=== PATIENT | female | born 1940 | race Caucasian/White ===

== ENCOUNTER 2017-05-26 07:17 | Day surgery (SDC) | payer OTHER, MEDICARE ==
[~2017-05-26 07:17] MED LIST: ABILIFY2 MG PO; ADVAIR HFA120 INHALA IH; ANTIFUNGAL15 G1 TP; APRESOLINE50 MG PO; ASPERDRINK81 MG PO; ASPIR-TRIN325 M1 PO; ASPIRIN81 M2 PO; ATHENOL325 MG PO; AVAPRO300 MG PO; Aspirin E.C. PO; BAZA ANTIFUNGAL57 GM TP; CATAPRES0.2 MG PO; CATAPRES0.3 MG PO; CEFUROXIME500 MG PO; CLINDAMYCIN HC300 MG PO; CLONIDINE HCL0.2 MG PO; COLACE100 MG PO; Catapres PO; DEXAMETHASONE4 MG PO; DILAUDID4 MG PO; DUONEB 2.5-0.5 M3 ML IH; ECOTRIN325 MG PO; EFFEXOR XR150 MG PO; EFFEXOR XR75 MG PO; EFFIENT10 MG PO; Effient PO; FENTANYL1 EAC4 TD; FUROSEMIDE40 MG PO; Flagyl PO; GABAPENTIN100 MG PO; GLYCOLAX225 GM PO; HUMALOG100 UNIT/1 SC; HUMALOG100 UNIT/2 SC; HYDROCORTISONE30 G2 TP; IPRATR-ALBUTEROL3 ML IH; KEFLEX500 MG PO; LANTUS 10100 UNITS/ SC; LANTUS 3 M100 UNITS1 SC; LASIX20 MG PO; LEVAQUIN500 MG PO; LEVEMIR FL100 UNIT/1 SC; LEVEMIR FL100 UNIT/1 SQ; LEVOTHROID,S0.025 M1 PO; LEVOTHROID50 MCG PO; LEVOTHYROXINE25 MCG PO; LEXAPRO20 MG PO; LISINOPRIL40 MG PO; LISINOPRIL5 MG PO; LOPRESSOR100 M1 PO; LOPRESSOR50 MG PO; LOVENOX40 MG/0.4 SC; LYRICA300 MG PO; LYRICA75 MG PO; Levothroid,Synthroid PO; Lopressor PO; METOPROLOL TART50 MG PO; NEOSPORIN; NEOSPORIN EYE D10 ML BOTH EYES; NEURONTIN300 MG PO; NIASPAN,SLO-NI500 MG PO; NIASPAN500 MG PO; NIFEDICAL XL30 MG PO; NITROGLYCERIN0.4 MG SL; NORVASC10 MG PO; NORVASC5 MG PO; NOVOLIN NPH,HU1 UNIT SC; NOVOLOG 10100 UNITS/ SC; NOVOLOG 10100 UNITS/ SQ; NOVOLOG PE100 UNITS/ SC; OXYCODONE HCL10 MG PO; OXYCODONE HCL5 MG PO; OXYCODONE30 MG PO; PERCOCET 10/1 TABLET PO; PERCOCET 5/31 TABLET PO; PHENERGAN25 MG PR; PLAVIX75 MG PO; PRINIVIL5 MG PO; PROTONIX40 MG PO; Q-TUSSIN DM SY240 ML PO; SENNA PLUS TAB1 EACH PO; SIMVASTATIN20 M1 PO; SIMVASTATIN20 MG PO; TRIPLE ANTIBIOT BOTH EYES; TYLENOL REGULA325 MG PO; Tums PO; VENLAFAXINE HCL75 M3 PO; VFEND PO; Vitamin D, Drisdol PO; ZESTRIL,PRINIVI10 M1 PO; ZOCOR20 MG PO; Zestril,Prinivil PO; Zocor PO; oxyCODONE PO
[2017-05-26] MEDS ORDERED: ADVAIR HFA120 INHALA IH (07:53)
[2017-05-26] MEDS ORDERED: ASPIR 8181 M1 PO (07:53)
[2017-05-26] MEDS ORDERED: COLACE100 MG PO (07:54)
[2017-05-26] MEDS ORDERED: BUPROPION HCL150 M2 PO (07:54)
[2017-05-26] MEDS ORDERED: NEURONTIN300 MG PO (07:55)
[2017-05-26] MEDS ORDERED: FENTANYL1 EAC4 TD (07:55)
[2017-05-26] MEDS ORDERED: LEVEMIR100 UNIT/2 SC (07:56)
[2017-05-26] MEDS ORDERED: LEVOTHYROXINE50 MCG PO (07:56)
[2017-05-26] MEDS ORDERED: SENOKOT S,PE1 TABLET PO (07:57)
[2017-05-26] MEDS ORDERED: VENLAFAXINE HC150 M1 PO (07:57)
[2017-05-26] MEDS ORDERED: VENLAFAXINE HCL75 MG PO (07:57)
[2017-05-26] MEDS ORDERED: PROTONIX20 MG PO (07:57)
[2017-05-26 08:18] LABS: POINT-OF-CARE METER ID UU13113696
== END 2017-05-26 12:48 ==
LOC: SDC 07:17 → CATH 07:17 → SDC 08:00 → CATH 12:48 → SDC 15:17
PROVIDERS: Surgery
DX: I70.261 Atherosclerosis of native arteries of extremities with gangrene, right leg (principal); I12.9 Hypertensive chronic kidney disease with stage 1 through stage 4 chronic kidney disease, or unspecified chronic kidney disease; E11.22 Type 2 diabetes mellitus with diabetic chronic kidney disease; N18.9 Chronic kidney disease, unspecified; Z79.4 Long term (current) use of insulin; Z86.73 Personal history of transient ischemic attack (TIA), and cerebral infarction without residual deficits; J44.9 Chronic obstructive pulmonary disease, unspecified; Z86.14 Personal history of Methicillin resistant Staphylococcus aureus infection
CPT/HCPCS: 82948; C1725; C1760; C1769; C1887; C1894; J1644; J2250; J2405; J3010; S0020

== ENCOUNTER 2017-07-02 23:42 | Emergency (ER) | payer OTHER, MEDICARE ==
[~2017-07-02] VITALS: Ht 162.6 cm; Wt 85.7 kg
[~2017-07-02 23:42] MED LIST changes: +ASPIR 8181 M1 PO; +BUPROPION HCL150 M2 PO; +LEVEMIR100 UNIT/2 SC; +LEVOTHYROXINE50 MCG PO; +PROTONIX20 MG PO; +SENOKOT S,PE1 TABLET PO; +VENLAFAXINE HC150 M1 PO; +VENLAFAXINE HCL75 MG PO
[2017-07-03 00:24] LABS: EOSINOPHIL (%) 0.8 % (0-5); EOSINOPHIL COUNT 0.1 K/uL (0-0.3); HEMATOCRIT 39.9 % (36.0-46.0); IMMATURE GRANULOCYTE (%) 0.9 % (0.0-0.7); IMMATURE GRANULOCYTE COUNT 0.1 K/uL; MCH 29.3 PG (29.0-34.0); MCHC 31.3 G/DL (30.0-36.0); MCV 93.7 FL (83-99); MEAN PLAT.VOLUME 10.1 uM^3 (9.5-12.4); MONOCYTE (%) 4.2 % (3-12); MONOCYTE COUNT 0.4 K/uL (0-0.8); NEUTROPHIL (%) 82.2 % (45-76); PLATELET COUNT 251 K/uL (156-360); RBC DIS.WIDTH-CV 15.6 % (11.8-14.6); RBC DIS.WIDTH-SD 53.7 % (39-53); WHITE BLOOD COUNT 8.5 K/uL (4.1-10.2)
[2017-07-03 00:25] LABS: RED BLOOD COUNT 4.26 M/uL (3.80-5.20)
[2017-07-03 00:46] LABS: TROP-I INTERPRETATION NEGATIVE; TROPONIN-I 0.03 ng/mL (0.0-0.30)
[2017-07-03 01:00] LABS: CHLORIDE 101 mEq/L (99-109); POTASSIUM 4.4 mEq/L (3.7-5.4); SODIUM 136 mEq/L (136-147)
[2017-07-03 01:02] LABS: GLUCOSE 322 mg/dL (70-99)
[2017-07-03 01:03] LABS: ANION GAP 11 MEQ/L (2-14)
[2017-07-03 01:04] LABS: TOTAL BILIRUBIN 0.4 mg/dL (0.0-1.0)
[2017-07-03 01:06] LABS: ALKALINE PHOSPHATASE 130 IU/L (3-129); GFR ESTIMATE (CALCULATED) 46 mL/min/
[2017-07-03 01:07] LABS: UREA NITROGEN (BUN) 24 mg/dL (9-23)
[2017-07-03 02:49] LABS: ADD MIUA? YES; BILIRUBIN NEGATIVE; BLOOD SMALL; COLOR YELLOW ((YELLOW)); GLUCOSE (STRIP) >=500; KETONES NEGATIVE; LEUKOCYTES TRACE; NITRITE NEGATIVE; PROTEIN (STRIP) NEGATIVE; SPECIFIC GRAVITY 1.011 (1.000-1.030); UROBILINOGEN 0.2 MG/DL (0.2-1.0)
[2017-07-03 02:58] LABS: BACTERIA RARE /HPF; EPITHELIAL CELLS RARE /HPF; MUCUS TRACE /LPF; RED BLOOD CELLS 0-5 /HPF (0-5); UCUL ADDED? NO; WHITE BLOOD CELLS 0-5 /HPF (0-5)
[2017-07-03 05:23] VITALS: BP 144/78
== END 2017-07-03 05:31 ==
LOC: EME → EDBD 23:42 → EME 07-03 05:31
PROVIDERS: Emergency Medicine
DX: F03.90 Unspecified dementia, unspecified severity, without behavioral disturbance, psychotic disturbance, mood disturbance, and anxiety (principal); W06.XXXA Fall from bed, initial encounter; Y92.122 Bedroom in nursing home as the place of occurrence of the external cause; E11.9 Type 2 diabetes mellitus without complications; E78.5 Hyperlipidemia, unspecified; E03.9 Hypothyroidism, unspecified; K21.9 Gastro-esophageal reflux disease without esophagitis; I25.2 Old myocardial infarction; Z95.5 Presence of coronary angioplasty implant and graft; Z96.649 Presence of unspecified artificial hip joint; Z79.82 Long term (current) use of aspirin
CPT/HCPCS: 70450; 71020; 72125; 72170; 80053; 81003; 84484; 85025; 93005; 99281; 99285